=== PATIENT | female | born 1970 | race Caucasian/White ===

== ENCOUNTER → 2017-04-02 | Outpatient (CLI) | payer BC ==
--- NOTE | 2017-04-02 15:23 | KCIC ---
Indication: Neck pain and arm numbness. Time of exam 2:20 PM Curvature and alignment is normal. There is degenerative disc disease C6-7 and C7-T1 levels with disc space narrowing and marginal spurring. The prevertebral tissues are normal. No fracture is identified. The odontoid is intact. IMPRESSION: Cervical spondylosis. No acute bony abnormality is detected. Electronically signed by: José Luis Antoine MD (04/02/2017 3:20 PM) [id number]
== END | disposition home or self-care (01) ==
LOC: KCIC 13:58
PROVIDERS: ATTEND Nurse Practitioner Family
DX: M50.323 Other cervical disc degeneration at C6-C7 level (principal); M47.892 Other spondylosis, cervical region; R20.0 Anesthesia of skin
CPT/HCPCS: 72050